=== PATIENT | female | born 1980 | race Caucasian/White ===

== ENCOUNTER 2019-11-18 11:16 | Emergency (ER) | payer MEDICAID | END 2019-11-18 12:04 | disposition home or self-care (01) | LOC: EDH 11:16 | DX: J02.9 Acute pharyngitis, unspecified (principal); Z90.49 Acquired absence of other specified parts of digestive tract; Z90.710 Acquired absence of both cervix and uterus; Z98.890 Other specified postprocedural states; Z72.0 Tobacco use ==

== ENCOUNTER 2021-08-26 18:37 | Emergency (ER) | payer BC, MEDICAID ==
[~2021-08-26] VITALS: Ht 160 cm; Wt 86.2 kg
[2021-08-26] MEDS ORDERED: OCTYL 2-CYANOACRYLATE 1 EACH TP ONE (20:01)
[2021-08-26 20:19] VITALS: BP 123/54
[2021-08-26] MEDS ORDERED: OCTYL 2-CYANOACRYLATE 1 EACH TP SCH (20:30)
== END 2021-08-26 20:24 | disposition home or self-care (01) ==
LOC: EDH 18:37
DX: S01.81XA Laceration without foreign body of other part of head, initial encounter (principal); W22.8XXA Striking against or struck by other objects, initial encounter; Y93.89 Activity, other specified; Y92.89 Other specified places as the place of occurrence of the external cause; Y99.8 Other external cause status
CPT/HCPCS: 12011; 99282